=== PATIENT | female | born 1970 | race Caucasian/White ===

== ENCOUNTER 2021-11-22 14:47 | Emergency (ER) | payer BC ==
--- OUTSIDE RECORDS SUMMARY | 2021-11-22 14:49 | XMS REPORT | Continuity of Care Document ---
:1970 Author Organization [facility] t Address [address] [place] [address] Care Team Providers Name Role Phone SANFORD Mandeep Primary Care Physician Unavailable [id number] Attending Clinician Unavailable TESTING, COVID Attending Clinician Unavailable Jennifer CHAVEZ. Attending Clinician Unavailable Kathy GROSSMAN, K.H. 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 00:00: [address] Allergies, Adverse Reactions, Alerts Allergy Allergy Status Severity Reaction(s) Onset Inactive Treating Comm ents Source Name Type Date Date Clinician NO KNOWN Drug Active Univers ALLERGIE Class [facility] Social History Social Habit Start Date Stop Date Quantity Comments Source Exposure to Not sure [facility] SARS-CoV-2 (event) Medica l Branch Tobacco use and 2021-07-17 2021-07-17 Never used [facility] exposure 00:00:00 00:00:00 Medical [place] Sex [birth year] [facility] 00:00:00 00:00:00 Medical Branch Smoking Status Start Date Stop Date Source Former smoker 2021-07-17 00:00:00 2021-07-17 00:00:00 [facility] Medical Branch Medications Ordered Filled Start Stop Current Ordering Indication Dosage Frequency Signature Comments Components Source Medication Medication Date Date Medication? Clinician (SIG) Name Name metoprolol Yes 50mg Take 50 mg U nivers succinate 9-01 by mouth it[place] of XL 50 mg 24 14:08: [place] [address] [place] [address] Branch rosuvastati Yes 5mg Take 5 mg U nivers n 5 mg - by mouth ity of tablet 14:08: daily. [address] OMEPRAZOLE Yes 40mg Take 40 mg U nivers ORAL 07-17 by mouth. ity of 14:08: [address] aspirin 81 Yes 81mg Take 81 mg U nivers mg chewable 07-17 by mouth ity of tablet 14:08: daily. [address] cholecalcif Yes Take by Un lydia judi, 07-17 mouth ity of vitamin D3, 14:08: daily. [place] (VITAMIN 04 Medical D3) 4,000 Branch unit Cap docosahexan Yes Take by Un lydia oic 07-17 mouth. ity of acid/epa 14:08: [place] (FISH OIL Medical ORAL) [place] metoprolol Yes 50mg Take 50 mg U nivers succinate 9-01 by mouth ity of XL 50 mg 24 14:08: [place]. [place] [address] [place] [address] rosuvastati Yes 5mg Take 5 mg U nivers n 5 mg -01 by mouth ity of tablet 14:08: daily. [address] OMEPRAZOLE Yes 40mg Take 40 mg U nivers ORAL 07-17 by mouth. ity of 14:08: [address] aspirin 81 Yes 81mg Take 81 mg U nivers mg chewable 07-17 by mouth ity of tablet 14:08: daily. [address] cholecalcif Yes Take by Un lydai judi, - mouth ity of vitamin D3, 14:08: daily. [place] (VITAMIN 04 Medical D3) 4,000 Branch unit Cap docosahexan Yes Take by Un lydia oic 9- mouth. ity of acid/epa 14:08: [place] (FISH OIL 04 Medical ORAL) Branch losartan 2020-0 Yes 100mg Take 1 Univer s 100 mg 3-30 tablet by ity of tablet 00:00: mouth [place] 00 daily. Medical Branch losartan 2020-0 Yes 100mg Take 1 Univer s 100 mg 3-30 tablet by ity of tablet 00:00: mouth [place] 00 daily. Medical Branch losartan 2020-0 Yes 100mg Take 1 Univer s 100 mg 3-30 tablet by ity of tablet 00:00: mouth [place] 00 daily. Medical Branch losartan 2019-0 Yes 100mg Take 1 Univer s 100 mg 3-30 tablet by ity of tablet 00:00: mouth [place] 00 daily. Medical Branch losartan 2019-0 Yes 100mg Take 1 Univer s 100 mg 3-30 tablet by ity of tablet 00:00: mouth [place] 00 daily. [facility] Branch cholecalcif 2018-11 Yes Take by Un lydia judi, 1-21 mouth ity of vitamin D3, 15:58: daily. [place] (VITAMIN 39 Medical D3) 4,000 Branch unit Cap cholecalcif 2018-11 Yes Take by Un lydia judi, 1-21 mouth ity of vitamin D3, 15:58: [place]. [place] (VITAMIN 39 Medical D3) 4,000 Branch unit Cap cholecalcif 2018-11 Yes Take by Un lydia judi, 1-21 mouth ity of vitamin D3, 15:58: daily. [place] (VITAMIN 39 Medical D3) 4,000 Branch unit Cap metoprolol 2018-11 Yes 50mg Take 50 mg U nivers succinate -21 by mouth ity of XL 50 mg 24 15:53: daily. [place] [facility] tablet [address] [place] [address] rosuvastati 2018-11 Yes 5mg Take 5 mg U nivers n 5 mg -21 by mouth ity of tablet 15:53: daily. [address] OMEPRAZOLE 2018-11 Yes 40mg Take 40 mg U nivers ORAL -21 by mouth. ity of 15:53: [address] aspirin 81 2018-11 Yes 81mg Take 81 mg U nivers mg chewable -21 by mouth ity of tablet 15:53: daily. [address] docosahexan 2018-11 Yes Take by Un lydia oic 1-21 mouth. ity of acid/epa 15:53: [place] (FISH OIL 50 Medical ORAL) Branch metoprolol 2018-11 Yes 50mg Take 50 mg U nivers succinate 1-21 by mouth ity of XL 50 mg 24 15:53: [place]. [place] 50 [facility] rosuvastati 2018-11 Yes 5mg Take 5 mg U nivers n 5 mg 1-21 by mouth ity of tablet 15:53: daily. [address] OMEPRAZOLE 2018-11 Yes 40mg Take 40 mg U nivers ORAL 1-21 by mouth. ity of 15:53: [address] aspirin 81 2018-11 Yes 81mg Take 81 mg U nivers mg chewable 1-21 by mouth ity of tablet 15:53: daily. [address] docosahexan 2018-11 Yes Take by Un lydia oic 1-21 mouth. ity of acid/epa 15:53: [place] (FISH OIL 50 Medical ORAL) [place] metoprolol 2018-11 Yes 50mg Take 50 mg U nivers succinate 1-21 by mouth ity of XL 50 mg 24 15:53: [place]. [place] 50 [facility] rosuvastati 2018-11 Yes 5mg Take 5 mg U nivers n 5 mg 1-21 by mouth ity of tablet 15:53: daily. [address] OMEPRAZOLE 2018-11 Yes 40mg Take 40 mg U nivers ORAL 1-21 by mouth. ity of 15:53: [address] aspirin 81 2018-11 Yes 81mg Take 81 mg U nivers mg chewable 1-21 by mouth ity of tablet 15:53: daily. [address] docosahexan 2018-11 Yes Take by Un lydia oic 1-21 mouth. ity of acid/epa 15:53: [place] (FISH OIL 50 Medical ORAL) Branch losartan 2018-11 2020- No 100mg Take 1 Unive rs 100 mg 0-18 03-30 tablet by ity of tablet 00:00: 00:00 mouth [place] 00 :00 daily. Medical Branch GABAPENTIN 2019-0 Yes [id number] TAKE ONE Univers 100 mg 9-27 (1) ity of capsule 00:00: [place]) [place] [facility]- Yes [id number] TAKE ONE Univers 100 mg 9-27 (1) ity of capsule 00:00: [place]) [place] 00 BY [place]OUTH Medical AT [place] BEDTIME. GABAPENTIN 2019-0 Yes [id number] TAKE ONE Univers 100 mg 9-27 (1) ity of capsule 00:00: [place]) [place] 00 BY MOUTH Medical AT [place] BEDTIME. GABAPENTIN 2019-0 Yes [id number] TAKE ONE Univers 100 mg 9-27 (1) ity of capsule 00:00: [place](S) [place] 00 BY MOUTH Medical AT [place] BEDTIME. GABAPENTIN 2019- Yes [id number] TAKE ONE Univers 100 mg 9-27 (1) ity of capsule 00:00: CAP[place]LE(S) [place] 00 BY MOUTH Medical AT [place] BEDTIME. metoprolol Yes 50mg Take 50 mg U nivers succinate 6-07 by mouth ity of XL 50 mg 24 16:48: daily. [place] [address] [place] [address] rosuvastati Yes 5mg Take 5 mg U nivers n 5 mg 6-07 by mouth ity of tablet 16:48: daily. [address] OMEPRAZOLE 2019-0 Yes 40mg Take 40 mg U nivers ORAL 6-07 by mouth. ity of 16:48: [address] aspirin 81 2019-0 Yes 81mg Take 81 mg U nivers mg chewable 6-07 by mouth ity of tablet 16:48: daily. [address] Cholecalcif 2019 Yes Take by Un lydia judi, 6-07 mouth. ity of Vitamin D3, 16:48: [place] (VITAMIN Medical D3) 2,000 [place] unit capsule docosahexan 2019 Yes Take by Un lydia oic 6-07 mouth. ity of acid/epa 16:48: [place] (FISH OIL 30 Medical ORAL) Branch metoprolol 2018-0 Yes 50mg Take 50 mg U nivers succinate 6-07 by mouth ity of XL 50 mg 24 16:48: daily. [place] [address] [place] [address] rosuvastati 20190 Yes 5mg Take 5 mg U nivers n 5 mg 6-07 by mouth ity of tablet 16:48: daily. [place] 30 Medical Branch OMEPRAZOLE Yes 40mg Take 40 mg U nivers ORAL 6-07 by mouth. ity of 16:48: [address] Branch aspirin 81 Yes 81mg Take 81 mg U nivers mg chewable 6-07 by mouth ity of tablet 16:48: daily. [address] Branch Cholecalcif Yes Take by Un lydia judi, 6-07 mouth. ity of Vitamin D3, 16:48: [place] (VITAMIN 30 Medical D3) 2,000 Branch unit capsule docosahexan Yes Take by Un lydia oic 6-07 mouth. ity of acid/epa 16:48: [place] (FISH OIL 30 Medical ORAL) Branch gabapentin Yes [id number] 100mg Take 1 Univers 100 mg 6-07 capsule by ity of capsule 00:00: mouth at [place] 00 bedtime. Medical Branch gabapentin Yes [id number] 100mg Take 1 Univers 100 mg 6-07 capsule by ity of capsule 00:00: mouth at [place] 00 bedtime. Medical Branch losartan Yes 100mg Take 1 Univer s 100 mg 5-21 tablet by ity of tablet 00:00: mouth [place] 00 daily. Medical Branch losartan Yes 100mg Take 1 Univer s 100 mg 5-21 tablet by ity of tablet 00:00: mouth [place] 00 daily. Medical Branch Vital Signs Vital Name Observation Time Observation Value Comments Source Systolic blood 2021-07-17 14:08:00 146 mm[Hg] [facility] pressure [facility] Diastolic blood 2021-07-17 14:08:00 79 mm[Hg] [facility] BMI 2021-07-17 14:06:00 43.16 kg/m2 [facility] Oxygen saturation 2021-07-17 14:06:00 97 /min [facility] in Arterial blood [facility] Br anch by Pulse oximetry Heart rate 2021-07-17 14:06:00 69 /min [facility] Body height 2021-07-17 14:06:00 157.5 cm [facility] Body weight 2021-07-17 14:06:00 107.049 kg [facility] Procedures Procedure Date / Time Performing Clinician Source Performed ASSIGNMENT OF BENEFITS 2021-07-17 13:43:06 Doctor Unassigned, No [facility] DME/SUPPLY JUSTIFICATION 2019-06-09 05:01:00 Doctor Unassigned, No [facility] Encounters Start End Encounter Admission Attending Care Care Encounter Source Date/Time Date/Time Type Type Clinicians Facility Department ID 2021-11-13 2021-11-13 Outpatient [id number] YSABEL CABRALES [id number] [place] 15:40:00 15:40:00 Seybol d 2021-11-13 2021-11-13 Outpatient TESTING, PL YSABEL CABRALES [id number] [place] 15:20:00 15:20:00 Seybol d 2021-09-17 2021-09-17 Outpatient Padmini CHAVEZ [facility] [id number] Univers 09:00:00 09:00:00 SENDIL [facility] [place] [facility] 2021-09-17 2021-09-17 Outpatient Padmini CHAVEZ [facility] [id number] Univers 09:00:00 09:00:00 SENDIL [id number] [facility] [place] [facility] 2021-07-17 2021-07-17 Office Kathy GAABBY [id number] Univers 08:42:59 09:48:47 Visit Sendej Bowman [id number] ity [facility] [id number] [place] Profess[place] [phone] [address] 2021-07-17 2021-07-17 Outpatient Padmini CHAVEZ [facility] [id number] Univers 09:00:00 09:00:00 SENDIL [id number] ity [facility] 2021-07-17 2021-07-17 Outpatient Padmini CHAVEZ [facility] [id number] Univers 09:00:00 09:00:00 SENDIL [facility] [place] [facility] 2021-07-17 2021-07-17 Orders Doctor HUYNH [id number] Univers 00:00:00 00:00:00 Only Unassigned, PIERRE [id number] ity of [facility] [id number] [place] [phone] [address] 2021-06-17 2021-06-17 Outpatient R KATHY [facility] [id number] Univers 09:00:00 09:00:00 SENDIL [id number] ity [facility] 2021-06-17 2021-06-17 Outpatient R KATHY [facility] [id number] Univers 09:00:00 09:00:00 [facility] [place] 2021-01-29 2021-01-29 Patient Herb [facility] [id number] Univers 00:00:00 00:00:00 Outreach Phill PRIMARY [id number] i ty of [facility] [id number] [place] [phone] [facility] [address] [place] 2020-02-13 2020-02-13 [facility] [id number] Univers 00:00:00 00:00:00 Sendil Tonia Bowman [id number] [id number] [place] Profess[place] [phone] Ms dicmt nal 059 Branch [facility] 2019-06-09 2019-06-09 Orders Doctor LINO [id number] Univers 00:00:00 00:00:00 Only Unassigned, PIERRE [id number] ity of [place] [facility] [id number] [place] [phone] [address] 2019-06-03 2019-06-03 [facility] [id number] Univers 00:00:00 00:00:00 [place] Tonia Bowman [id number] [id number] [place] [phone] [facility] nal 9 Branch [facility] Results This patient has no known results.
--- NOTE | 2021-11-22 16:15 | RAD REPORT ---
EXAM DESCRIPTION: RAD - Chest Pa And Lat (2 Views) - 11/22/2021 4:03 pm CLINICAL HISTORY: COUGH COMPARISON: No comparisons FINDINGS: Lines: None. Lungs: No evidence of edema or pneumonia. Pleural: No significant pleural effusions or pneumothorax. Cardiac: The heart size is within normal limits. Bones: No acute fractures. Other: IMPRESSION: No acute cardiopulmonary disease.
--- NOTE | 2021-11-22 16:25 | EDPHYS ---
Physician Documentation [facility] Name: Shannon Mandujano Age: 51 yrs Sex: Female : 1970 Arrival Date: 11/22/2021 Time: 15:00 Bed Waiting Private MD: ED Physician Souleymane Caro HPI: 11/22 15:40 This 51 yrs old Female presents to ER via Ambulatory with complaints of Cough, Nasal cp Drainage, Headache, COVID +. 15:40 The patient or guardian reports cough, that is intermittent. Onset: The cp symptoms/episode began/occurred 10 day(s) ago. 15:40 Severity of symptoms: in the emergency department the symptoms are unchanged, despite cp home interventions. Associated signs and symptoms: Pertinent positives: rhinorrhea, sore throat, Pertinent negatives: chest pain, diarrhea, fever, vomiting. 15:40 Patient reports testing positive for COVID-19 10 days ago. cp Historical: - Allergies: 15:26 No Known Allergies; tw2 - Home Meds: 15:26 amlodipine 2.5 mg tab 1 tab once daily [Active]; metoprolol succinate 50 mg Oral Tb24 1 tw2 tab once daily [Active]; omeprazole 40 mg Oral cpDR 1 cap once daily [Active]; losartan-hydrochlorothiazide 100-25 mg oral tab 1 tab once daily [Active]; - PMHx: 15:26 acid reflux; Hypertension; tw2 - Immunization history:: Client reports having NOT received the Covid vaccine. - Social history:: Smoking status: Patient denies any tobacco usage or history of. ROS: 15:45 Constitutional: Positive for body aches, Negative for fever, poor PO intake. cp 15:45 Eyes: Negative for injury, pain, redness, and discharge. cp 15:45 ENT: Positive for sore throat, Negative for drainage from ear(s), ear pain, difficulty swallowing, difficulty handling secretions. 15:45 Neck: Negative for pain with movement, pain at rest, stiffness. 15:45 Cardiovascular: Negative for chest pain, palpitations. 15:45 Respiratory: Positive for cough, "sounds productive", shortness of breath, on exertion. Negative for wheezing. 15:45 Abdomen/GI: Negative for abdominal pain, nausea, vomiting, and diarrhea. 15:45 : Negative for urinary symptoms. 15:45 Neuro: Negative for altered mental status, headache, weakness. 15:45 All other systems are negative. Exam: 15:50 Constitutional: The patient appears in no acute distress, alert, awake, cp non-diaphoretic, non-toxic, well developed, well nourished, obese. 15:50 Head/Face: Normocephalic, atraumatic. cp 15:50 Eyes: Periorbital structures: appear normal, Conjunctiva: normal, no exudate, no injection, Sclera: no appreciated abnormality, Lids and lashes: appear normal, bilaterally. 15:50 ENT: External ear(s): are unremarkable, Ear canal(s): are normal, clear, TM's: dullness, bilaterally, Nose: is normal, Mouth: Lips: moist, Oral mucosa: pink and intact, moist, Posterior pharynx: Airway: no evidence of obstruction, patent, Tonsils: no enlargement, no exudate, erythema, that is mild, exudate, is not appreciated. 15:50 Neck: ROM/movement: is normal, is supple, no meningismus, no nuchal rigidity. 15:50 Chest/axilla: Inspection: normal. 15:50 Cardiovascular: Rate: normal, Rhythm: regular, Edema: is not appreciated, JVD: is not appreciated. 15:50 Respiratory: the patient does not display signs of respiratory distress, Respirations: normal, no use of accessory muscles, no retractions, labored breathing, is not present, Breath sounds: bronchial sounds, that are mild, are heard diffusely, decreased breath sounds, are not appreciated, stridor, is not appreciated, + upper airway congestion. wheezing: is not appreciated. 15:50 Abdomen/GI: Exam negative for discomfort, distension, guarding, Inspection: abdomen appears normal. 15:50 Back: CVA tenderness, is absent. 15:50 Neuro: Orientation: to person, place \\T\\ time. Mentation: is normal, Motor: moves all fours, strength is normal, Sensation: is normal. Vital Signs: 15:31 BP 163 / 96; Pulse 66; Resp 19; Temp 97.6(TE); Pulse Ox 99% on R/A; tw2 MDM: 16:24 Patient medically screened. cp 16:24 Differential Diagnosis: Bronchitis Otitis Media Viral Syndrome Pneumonia Other strep cp throat. 16:24 Data reviewed: vital signs, nurses notes, radiologic studies, plain films. Test cp interpretation: by ED physician or midlevel provider: plain radiologic studies. Counseling: I had a detailed discussion with the patient and/or guardian regarding: the historical points, exam findings, and any diagnostic results supporting the discharge/admit diagnosis, radiology results, to return to the emergency department if symptoms worsen or persist or if there are any questions or concerns that arise at home. ED course: VSS. Patient appears non-toxic and no signs of respiratory distress. Will discharge to home for continued monitoring. 11/22 15:28 Order name: XRAY Chest Pa And Lat (2 Views); Complete Time: 16:23 cp 11/22 16:23 Interpretation: Report reviewed. cp Administered Medications: No medications were administered Disposition Summary: 11/22/21 16:24 Discharge Ordered Location: Home cp Problem: new cp Symptoms: are unchanged cp Condition: Stable cp Diagnosis - SARS-associated coronavirus as the cause of diseases classified elsewhere cp Followup: cp - With: Private Physician - When: 2 - 3 days - Reason: Worsening of condition Discharge Instructions: - Discharge Summary Sheet cp - Aspirin and Your Heart cp - COVID-19 cp - Things to Know about the COVID-19 Pandemic - [facility] cp - 10 Things You Can Do to Manage Your COVID-19 Symptoms at Home - [facility] cp - COVID-19: Quarantine vs. Isolation - [facility] cp - Prevent the Spread of COVID-19 if You Are Sick - [facility] cp Forms: - Medication Reconciliation Form cp - Thank You Letter cp - Antibiotic Education cp - Prescription Opioid Use cp Prescriptions: - Tessalon Perles 100 mg Oral Capsule - take 2 capsule by ORAL route every 8 hours As needed; 30 capsule; Refills: 0, cp Product Selection Permitted - Zithromax Z-Augustine 250 mg Oral Tablet - take 1 tablet by ORAL route as directed for 5 days Day 1 - take two (2) tablets cp one time. Day 2, 3, 4 , 5 take one (1) tablet once daily.; 6 tablet; Refills: 0, Product Selection Permitted - Medrol (Augustine) 4 mg Oral Tablets, Dose Pack - take 1 tablet by ORAL route as directed - follow package instructions; 1 cp packet; Refills: 0, Product Selection Permitted - albuterol sulfate 90 mcg/actuation Inhalation HFA aerosol inhaler - inhale 1 puff by INHALATION route every 4 hours; 1 Inhaler; Refills: 0, Product cp Selection Permitted Addendum: 11/24/2021 16:19 Co-signature as Attending Physician, Souleymane Caro MD I agree with the assessment and s p3 plan of care. Signatures: Dispatcher [employer] EDOH Refugio Hilton PA PA cp Wise, Tara RN RN tw2 Souleymane Caro MD MD sp3
--- NOTE | 2021-11-22 16:25 | ER ---
Nurse's Notes [facility] Name: Shannon Mandujano Age: 51 yrs Sex: Female : 1970 Arrival Date: 11/22/2021 Time: 15:00 Bed Waiting Private MD: Diagnosis: SARS-associated coronavirus as the cause of diseases classified elsewhere Presentation: 11/22 15:31 Note provider FELIZ Rivero in triage room performing assessment. tw2 15:31 Chief complaint: Patient states: we have covid and we are just not getting better. we tw2 have the nasal drainage with a cough and nausea. we have been taking OTC medicines and just not getting better. Coronavirus screen: congestion, cough unrelated to allergies, headache, Client presents with at least one sign or symptom that may indicate coronavirus-19. Standard/surgical mask placed on the client. Provider contacted for isolation considerations. Client reports previous positive COVID test result. Ebola Screen: Patient denies travel to an Ebola-affected area in the 21 days before illness onset. Initial Sepsis Screen: Does the patient meet any 2 criteria? No. Patient's initial sepsis screen is negative. Does the patient have a suspected source of infection? No. Patient's initial sepsis screen is negative. Risk Assessment: Do you want to hurt yourself or someone else? Patient reports no desire to harm self or others. Onset of symptoms was November 22, 2021. 15:31 Method Of Arrival: Ambulatory tw2 15:31 Acuity: LEATHA 4 tw2 Triage Assessment: 15:33 General: Appears in no apparent distress. obese, well groomed, Behavior is calm, tw2 cooperative, appropriate for age. Pain: Complains of pain in headache. Historical: - Allergies: 15:26 No Known Allergies; tw2 - Home Meds: 15:26 amlodipine 2.5 mg tab 1 tab once daily [Active]; metoprolol succinate 50 mg Oral Tb24 1 tw2 tab once daily [Active]; omeprazole 40 mg Oral cpDR 1 cap once daily [Active]; losartan-hydrochlorothiazide 100-25 mg oral tab 1 tab once daily [Active]; - PMHx: 15:26 acid reflux; Hypertension; tw2 - Immunization history:: Client reports having NOT received the Covid vaccine. - Social history:: Smoking status: Patient denies any tobacco usage or history of. Screenin:08 Abuse screen: Denies threats or abuse. Denies injuries from another. Nutritional ss screening: No deficits noted. Tuberculosis screening: No symptoms or risk factors identified. Never had TB. Fall Risk None identified. Assessment: 17:08 General: Appears in no apparent distress. comfortable, Behavior is calm, cooperative. ss Neuro: Level of Consciousness is awake, alert, obeys commands, Oriented to person, place, time, situation. Respiratory: Airway is patent Respiratory effort is even, unlabored, Respiratory pattern is regular, symmetrical. Derm: Skin is intact, is healthy with good turgor, Skin is dry, Skin is pink, warm \T\ dry. normal. Musculoskeletal: Range of motion: intact in all extremities. Vital Signs: 15:31 BP 163 / 96; Pulse 66; Resp 19; Temp 97.6(TE); Pulse Ox 99% on R/A; tw2 ED Course: 15:00 Patient arrived in ED. am2 15:17 Refugio Hilton PA is PHCP. cp 15:17 Souleymane Caro MD is Attending Physician. cp 15:28 Arm band placed on. tw2 15:33 Triage completed. tw2 16:02 XRAY Chest Pa And Lat (2 Views) In Process Unspecified. EDMS 17:08 Patient has correct armband on for positive identification. Pt discharged from ER [facility].ss 17:08 No provider procedures requiring assistance completed. Patient did not have IV access ss during this emergency room visit. Administered Medications: No medications were administered Outcome: 16:24 Discharge ordered by MD. cp 17:08 Discharged to home ambulatory, with family. ss 17:08 Condition: good 17:08 Discharge instructions given to patient, family, Instructed on discharge instructions, follow up and referral plans. medication usage, Demonstrated understanding of instructions, follow-up care, medications, Prescriptions given X 4. 17:09 Patient left the ED. ss Signatures: Dispatcher [employer] EDPR Maria L Ordaz RN RN Refugio Hilton PA PA cp Wise, Tara, RN RN tw2 Lorene Fox am2
[2021-11-22 17:14] VITALS: BP 163/96; TEMP 97.6; O2SAT 99
== END 2021-11-22 17:09 | disposition home or self-care (01) ==
LOC: ER 14:47
DX: U07.1 COVID-19 (principal); I10 Essential (primary) hypertension; K21.9 Gastro-esophageal reflux disease without esophagitis
CPT/HCPCS: 71046; 99283

== ENCOUNTER 2022-09-30 07:25 | Observation (INO) | payer BC ==
--- NOTE | 2022-09-25 09:51 | RAD REPORT ---
EXAM DESCRIPTION: Juani Barraza (2 Views)09/25/2022 9:42 am CLINICAL HISTORY: Preop for knee surgery. Hypertension COMPARISON: November 2021 FINDINGS: The lungs appear clear of acute infiltrate. The heart is normal size IMPRESSION: No acute abnormalities displayed
[2022-09-25 10:07] LABS: Absolute Lymphocytes (CBC) 1.7 K/uL (0.7-4.9); Hematocrit 40.6 % (36.0-45.0); Lymphocytes % 27.7 % (15.3-44.8); MCV 92.3 fL (80-100); MPV 8.3 fL (7.6-11.3)
[2022-09-25 10:12] LABS: Specific Gravity 1.017 (1.005-1.030); Urine Bilirubin NEGATIVE (Negative); Urine Blood 2+ (Negative); Urine Clarity Clear (Clear); Urine Color Light-Yellow (Yellow); Urine Glucose NEGATIVE (Negative); Urine Protein NEGATIVE (Negative); Urine RBC <5 /HPF (None Seen); Urine Urobilinogen Normal (Normal)
[2022-09-25 10:19] LABS: Protime INR 0.96
[2022-09-25 10:28] LABS: Albumin 3.8 g/dL (3.4-5.0); Bilirubin Total 0.8 mg/dL (0.2-1.0); Potassium 3.9 mmol/L (3.5-5.1); Protein, Total 7.3 g/dL (6.4-8.2)
[~2022-09-30 07:25] MED LIST: CEFAZOLIN 2 GM in NA CHLORIDE 0.9% 100 ML IVPB SCH; CELECOXIB 100 MG CAPSULE PO SCH; GABAPENTIN 100 MG CAP PO SCH; GABAPENTIN 300 MG CAP PO SCH; Oxycodone HCl/Acetaminophen 1 TAB TAB PO SCH; TRANEXAMIC ACID 1,000 MG in NA CHLORIDE 0.9% 50 ML IV ONE
[2022-09-30 08:09] LABS: Urine Specific Gravity/Preg >1.030 (1.005-1.030)
[2022-09-30] MEDS ORDERED: CEFAZOLIN SODIUM 2 GM/VIAL ONE (08:16)
[2022-09-30] MEDS ORDERED: Ringers Lactate 1,000 ML IV ONE ×2 (08:16→09:21)
[2022-09-30 08:39] LABS: SARS-CoV-2 Antigen Rapid Res Negative (Negative)
[2022-09-30] MEDS ORDERED: CELECOXIB 100 MG CAPSULE ONE (08:46)
[2022-09-30] MEDS ORDERED: GABAPENTIN 100 MG CAP ONE (08:46)
[2022-09-30] MEDS ORDERED: Oxycodone HCl/Acetaminophen 1 TAB TAB ONE (08:47)
[2022-09-30] MEDS ORDERED: ACETAMINOPHEN 500 MG TAB ONE (08:47)
[2022-09-30] MEDS ORDERED: LIDOCAINE 1% MPF 5 ML VIAL ONE (09:01)
[2022-09-30] MEDS ORDERED: dexAMETHasone 10 MG/ML VIAL ONE ×2 (09:02→09:41)
[2022-09-30] MEDS ORDERED: EPINEPHRINE/PF 1 MG/ML AMP ONE (09:02)
[2022-09-30] MEDS ORDERED: FENTANYL CITR 100 MCG/2 ML ONE ×2 (09:02→10:19)
[2022-09-30] MEDS ORDERED: MIDAZOLAM HCL 2 MG/2 ML INJ ONE (09:02)
[2022-09-30] MEDS ORDERED: BUPIVACAINE 0.25% PF 30 ML VIAL ONE (09:02)
[2022-09-30] MEDS ORDERED: HYDROMORPHONE HCL 1 MG/ML INJ ONE (09:37)
[2022-09-30] MEDS: TRANEXAMIC ACID 1,000 MG/10 ML VIAL IV ONE ×3 (09:38→11:00)
[2022-09-30] MEDS ORDERED: propofoL 200 MG/20 ML VIAL IV ONE ×2 (09:40→10:18)
[2022-09-30] MEDS ORDERED: KETOROLAC 30 MG/ML INJ ONE (09:41)
[2022-09-30] MEDS ORDERED: LIDOCAINE 2% MPF 5 ML VIAL ONE (09:41)
[2022-09-30] MEDS ORDERED: KETAMINE HCL 500 MG/5 ML VIAL ONE (09:41)
[2022-09-30] MEDS ORDERED: ONDANSETRON 4 MG/2 ML VIAL ONE (09:44)
[2022-09-30] MEDS ORDERED: NS 0.9% VIAL 10 ML ONE ×2 (09:52→11:11)
[2022-09-30] MEDS ORDERED: GLYCOPYRROLATE 0.2 MG/ML SYR ONE (10:34)
[2022-09-30] MEDS ORDERED: TRANEXAMIC ACID 1,000 MG/10 ML VIAL IV ONE (10:57)
[2022-09-30] MEDS ORDERED: ONDANSETRON 4 MG/2 ML VIAL IV PRN (12:13)
[2022-09-30] MEDS ORDERED: DOCUSATE NA 100 MG CAP PO PRN (12:13)
--- NOTE | 2022-09-30 12:13 | P.BOP ---
Preoperative diagnosis: right knee arthritis Postoperative diagnosis: same Primary procedure: right total knee arthoplasty Estimated blood loss: 100 ccs Anesthesia: General Complications: None Transferred to: Recovery Room Condition: Good
[2022-09-30] MEDS ORDERED: MEPERIDINE HCL 25 MG/ML SYR ONE (12:46)
[2022-09-30] MEDS: HYDROMORPHONE HCL 1 MG/ML INJ ONE ×2 (13:49→13:59)
[2022-09-30] MEDS ORDERED: LABETALOL 20 MG/4ML SYRINGE IV PRN (14:09)
--- OUTSIDE RECORDS SUMMARY | 2022-09-30 14:10 | XMS REPORT | Continuity of Care Document ---
:1970 Author Organization [facility] t Address [address] [place] [address] [address]. Argu[address] [place] [address] Care Team Providers Name Role Phone Laurita GROSSMAN, Judy Vaughan Primary Care Physician CHANDLER ALVAREZ Attending Clinician Unavailable Kathy GROSSMAN, Sendmilvia K.H. Attending Clinician JACQUIE RAMSEY Attending Clinician Unavailable Nimtz MUSCULOSKELETAL PHYSIOTHERAPISTJacquie Attending Clinician Doctor Unassigned, [place] Attending Clinician Unavailable LAB90 Attending Clinician Unavailable Laure Mars MD Attending Clinician JUDY SHAY Attending Clinician Unavailable LAURE MARS Attending Clinician Unavailable KATHY SENDMILVIA K.H. Attending Clinician Unavailable Only, Adc Test Attending Clinician Unavailable Rosas Solares MD Attending Clinician ROSAS SOLARES Attending Clinician Unavailable Judy Shay MD Attending Clinician [phone] [id number] Attending Clinician Unavailable TESTING, PL COVID Attending Clinician Unavailable Phill Estevez DO Attending Clinician LAURE MARS Admitting Clinician Unavailable CELIA CHAVEZ K.H. 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 00:00: - 00 Externa l Splenic Splenic Disease Active 2021-11 [place] artery artery 0-12 [place] aneurysm aneurysm 00:00: - 00 Externa l Class 3 Class 3 Disease Active 2021-11 [place] severe severe 0-12 [place] obesity obesity 00:00: - due to due to 00 Externa excess excess l calories calories with with serious serious comorbidit comorbidit y and body y and body mass index mass index (BMI) of (BMI) of 40.0 to 40.0 to 44.9 in 44.9 in adult adult Current Current Disease Active 2021-11 [place] mild mild 0-12 [place]bold 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:00: - major major 00 Externa depressive depressive l disorder disorder without without prior prior episode episode Primary Primary Disease Active 2021-11 [place] osteoarthr osteoarthr 0-12 Se ybold itis of itis of 00:00: - both knees both knees 00 Ex terna l 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-09 ity of aneurysm aneurysm 00:00: [place] 00 [facility] Renal Renal Disease Active Univers artery artery 7-11 ity of aneurysm aneurysm 00:00: [place] 00 [facility] Gastroesop Gastroesop Disease Active Faye konstantinshalini hageal hageal 6-18 [place] reflux reflux 00:00: disease disease 00 Hyperlipid Hyperlipid Disease Active Faye dodge emia emia 6-18 Seybold 00:00: - 00 Externa l Gastroesop Gastroesop Disease Active Faye konstantinshalini hageal hageal 6-18 [place] reflux reflux 00:00: - disease disease 00 Externa without without l esophagiti esophagiti s s History of History of Disease Active Faye dodge hypothyroi hypothyroi 6-18 Se ybold dism - Not dism - Not 00:00: - Controlled Controlled 00 Ex terna l Chest pain Chest pain Disease Active Faye elsey 6-18 [place]bold 00:00: - 00 Externa l Encounter Encounter Disease Active Milo solis for for 6-18 [place] mammogram mammogram 00:00: - to to 00 Externa establish establish l baseline baseline mammogram mammogram - - Unchanged Unchanged Hypertensi Hypertensi Disease Active K elsey on on 05-03 Seybold 00:00: - 00 Externa l 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 00:00: [place] 00 [facility] Allergies, Adverse Reactions, Alerts Allergy Allergy Status Severity Reaction(s) Onset Inactive Treating Comm ents Source Name Type Date Date Clinician NO KNOWN Drug Active Univers ALLERGIE Class [facility] Social History Social Habit Start Date Stop Date Quantity Comments Source History of Current smoker [facility] tobacco use [facility] Exposure to 2022-08-23 2022-09-02 Not sure [facility] SARS-CoV-2 00:00:00 06:38:00 [facility] (event) [facility] Tobacco use and 2022-05-26 2022-05-26 Smokeless tobacco Un iversity of exposure 00:00:00 00:00:00 [facility]user [facility] Sex Ass[birth year] At [birth year] Y[place]abel Woods ybold - 00:00:00 00:00:00 External Smoking Status Start Date Stop Date Source Ex-smoker 2021-05-03 00:00:00 2021-05-03 00:00:00 Ysabel galdamez - External Medications Ordered Filled Start Stop Current Ordering Indication Dosage Frequency Signature Comments Components Source Medication Medication Date Date Medication? Clinician (SIG) Name Name ibuprofen 2021-11 Yes 800mg Take 800 Uni vers 800 mg 0-18 mg by ity of tablet 08:09: mouth [place] 35 every 6 Medical (six) Branch hours as needed. ibuprofen 2021-11 Yes 800mg Take 800 Uni vers 800 mg 0-18 mg by ity of tablet 08:09: mouth [place] 35 every 6 Medical (six) Branch hours as needed. ibuprofen 2021-11 Yes 800mg Take 800 Uni vers 800 mg 0-18 mg by ity of tablet 08:09: mouth [place] 35 every 6 Medical (six) Branch hours as needed. [place]-3 2021-11 Yes Take by [place] Fatty Acids 0-12 mouth [place] (Fish Oil) 07:57: - 1200 MG 10 Externa oral l Capsule Aspirin 81 2021-11 Yes 81mg Take 81 mg K elsey MG oral 0-12 by mouth [place] Chewable 07:57: daily - Tablet 10 Externa l Cholecalcif 2021-11 Yes Take by Milo sey judi 100 0-12 mouth [place]bold MCG (4000 07:57: daily - [place]) oral 10 Externa Capsule l Ibuprofen 2021-11 Yes [id number] 800mg Q.[id number] Take 1 [place]abel 800 MG oral 0-12 [id number] tablet Seybold Tablet 00:00: 3D (800 mg - 00 total) by Externa mouth l every 8 hours as needed for pain Sertraline Yes [id number] TAKE ONE [place] HCl 50 MG 07-25 (1) Seybold oral Tablet 00:00: TABLET(S) - 00 BY MOUTH Externa ONCE A l DAY. Ibuprofen 2021- No [id number] 800mg Q.[id number] Take 1 [place]abel 800 MG oral 6-24 10-12 [id number] tablet Seybold Tablet 00:00: 00:00 3D (800 mg - 00 :00 total) by Externa mouth l every 8 hours as needed for pain Famotidine 2021- No [id number] 20mg Take 1 [place] (PEPCID) 20 6-24 10-12 tablet (20 S eybold MG oral 00:00: 00:00 mg total) - tablet 00 :00 by mouth Externa daily l [place]-3 Yes Take by [place] Fatty Acids 5-13 mouth [place] (Fish Oil) 08:09: 1200 MG 42 oral Capsule Aspirin 81 Yes 81mg Take 81 mg K elsey MG oral 5-13 by mouth [place]bold Chewable 08:09: daily Tablet 42 Cholecalcif Yes Take by Milo sey judi 100 5-13 mouth [place]bold MCG (4000 08:09: daily [place]) oral 42 Capsule Sertraline Yes [id number] 25mg Take 1 [place] HCl 25 MG 5-13 tablet (25 Seyb old oral Tablet 00:00: mg total) 00 by mouth daily Ibuprofen-F Yes [id number] 1{tbl} Q.[id number] Take 1 [place] amotidine 5-13 [id number] tablet by Seybold 800-26.6 MG 00:00: 3D mouth 3 oral Tablet 00 times daily as needed Ibuprofen-F 2021-0 2021- No [id number] 1{tbl} Q.[id number] Take 1 [place] amotidine 5-13 10- [id number] tablet by Seybold 800-26.6 MG 00:00: 00:00 3D mouth 3 - oral Tablet 00 :00 times Externa daily as l needed Ibuprofen-F 2021-0 2021- No [id number] 1{tbl} Q.[id number] Take 1 [place] amotidine 5-13 05- [id number] tablet by Seybold 800-26.6 MG 00:00: 00:00 3D mouth 3 oral Tablet 00 :00 times daily as needed Losartan Yes [id number] 100mg Take 1 Ke lsey Potassium 5-04 tablet Seybold 100 MG oral 00:00: (100 mg - Tablet 00 total) by Externa mouth l daily Losartan Yes [id number] 100mg Take 1 Ke lsey Potassium 5-04 tablet Seybold 100 MG oral 00:00: (100 mg Tablet 00 total) by mouth daily Metoprolol 2021-0 2021- No 50mg Take 50 mg [place] Succinate 4-15 04-15 by mouth Seybo ld 50 MG oral 08:48: 00:00 daily TABLET SR 03 :00 24 HR Rosuvastati 2021-0 2021- No 5mg Take 5 mg [place] n Calcium 5 4-15 04-15 by mouth Sey bold MG oral 08:47: 00:00 daily Tablet 29 :00 [place]-3 2021- Yes Take by [place] Fatty Acids 4-15 mouth [place] (Fish Oil) 08:15: 1200 MG 25 oral Capsule Aspirin 81 2021-0 Yes 81mg Take 81 mg K elsey MG oral 4-15 by mouth [place]bold Chewable 08:15: daily Tablet 25 Cholecalcif 2021-0 Yes Take by Milo woodsy judi 100 4-15 mouth [place] MCG (4000 08:15: daily [place]) oral 25 Capsule Omeprazole 2021-0 Yes [id number] 40mg Take 1 [place] 40 MG oral 4-15 capsule Seybol d Delayed 00:00: (40 mg - Release 00 total) by Externa Capsule mouth l daily Rosuvastati Yes [id number] 5mg Take 1 [place] n Calcium 5 4-15 tablet (5 Sey bold MG oral 00:00: mg total) - Tablet 00 by mouth Externa daily l Metoprolol Yes [id number] 50mg Take 1 K elsey Succinate 4-15 tablet (50 Seyb old 50 MG oral 00:00: mg total) - TABLET SR 00 by mouth [employer] a 24 HR daily l Fluoxetine Yes [id number] 20mg Take 1 [place] HCl 20 MG 4-15 capsule Seybold oral 00:00: (20 mg Capsule 00 total) by mouth daily Omeprazole Yes [id number] 40mg Take 1 [place] 40 MG oral 4-15 capsule Seybol d Delayed 00:00: (40 mg Release 00 total) by Capsule mouth daily Rosuvastati Yes [id number] 5mg Take 1 [place] n Calcium 5 4-15 tablet (5 Sey bold MG oral 00:00: mg total) Tablet 00 by mouth daily Losartan Yes [id number] 100mg Take 1 Ke lsey Potassium 4-15 tablet Seybold 100 MG oral 00:00: (100 mg Tablet 00 total) by mouth daily Metoprolol Yes [id number] 50mg Take 1 K elsey Succinate 4-15 tablet (50 Seyb old 50 MG oral 00:00: mg total) TABLET SR 00 by mouth 24 HR daily Omeprazole Yes [id number] 40mg Take 1 [place]abel 40 MG oral 4-15 capsule Seybol d Delayed 00:00: (40 mg Release 00 total) by Capsule mouth daily Rosuvastati Yes [id number] 5mg Take 1 [place] n Calcium 5 4-15 tablet (5 Sey bold MG oral 00:00: mg total) Tablet 00 by mouth daily Metoprolol Yes [id number] 50mg Take 1 K elsey Succinate 4-15 tablet (50 Seyb old 50 MG oral 00:00: mg total) TABLET SR 00 by mouth 24 HR daily Fluoxetine 2021- No [id number] 20mg Take 1 [place] HCl 20 MG 4-15 05-13 capsule Seybol d oral 00:00: 00:00 (20 mg Capsule 00 :00 total) by mouth daily [place]-3 Yes Take by [place] Fatty Acids 4-08 mouth Seybold (Fish Oil) 08:13: 1200 MG 53 oral Capsule Aspirin 81 0 Yes 81mg Take 81 mg K elsey MG oral 4-08 by mouth Seybold Chewable 08:13: daily Tablet 53 Cholecalcif 0 Yes Take by Milo sey judi 100 4-08 mouth [place]bold MCG (4000 08:13: daily [place]) oral 53 Capsule Metoprolol Yes 50mg Take 50 mg K elsey Succinate 4-08 by mouth Seybol d 50 MG oral 08:13: daily TABLET SR 53 24 HR Rosuvastati Yes 5mg Take 5 mg K elsey n Calcium 5 4-08 by mouth Seyb old MG oral 08:13: daily Tablet 53 Metoprolol 2020-11 Yes TAKE ONE Milo sey Succinate 0-13 (1) Seybold 50 MG oral 00:00: TABLET(S) TABLET SR 00 BY MOUTH 24 HR ONCE A DAY. Metoprolol 2020-11 No TAKE ONE Ke lsey Succinate 0-13 04-15 (1) Seybold 50 MG oral 00:00: 00:00 TABLET(S) TABLET SR 00 :00 BY MOUTH 24 HR ONCE A DAY. metoprolol Yes 50mg Take 50 mg U nivers succinate 07-17 by mouth ity of XL 50 mg 24 09:08: [place] [address] rosuvastati Yes 5mg Take 5 mg U nivers n 5 mg 07-17 by mouth ity of tablet 09:08: daily. [address] OMEPRAZOLE Yes 40mg Take 40 mg U nivers ORAL 07-17 by mouth. ity of 09:08: [address] aspirin 81 0 Yes 81mg Take 81 mg U nivers mg chewable 07-17 by mouth ity of tablet 09:08: daily. [address] Branch cholecalcif Yes Take by Uni vers judi, 07-17 mouth ity of vitamin D3, 09:08: daily. [place] (VITAMIN Medical D3) 4,000 Branch unit Cap docosahexan Yes Take by Uni vers oic 07-17 mouth. ity of acid/epa 09:08: [place] (FISH OIL 04 Medical ORAL) [facility] metoprolol 2020-0 Yes 50mg Take 50 mg U nivers succinate - by mouth ity of XL 50 mg 24 09:08: [place]. [place] hr tablet [address] [place] [address] rosuvastati 2020-0 Yes 5mg Take 5 mg U nivers n 5 mg - by mouth ity of tablet 09:08: daily. [address] OMEPRAZOLE 2020-0 Yes 40mg Take 40 mg U nivers ORAL - by mouth. ity of 09:08: [address] aspirin 81 2020-0 Yes 81mg Take 81 mg U nivers mg chewable 07-17 by mouth ity of tablet 09:08: daily. [address] cholecalcif 2020-0 Yes Take by Uni vers judi, 07-17 mouth ity of vitamin D3, 09:08: daily. [place] (VITAMIN 04 Medical D3) 4,000 Branch unit Cap docosahexan 2020-0 Yes Take by Uni vers oic 07-17 mouth. ity of acid/epa 09:08: [place] (FISH OIL 04 Medical ORAL) [facility] metoprolol 0 Yes 50mg Take 50 mg U nivers succinate - by mouth ity of XL 50 mg 24 09:08: daily. [place] hr tablet [address] [place] [address] rosuvastati 0 Yes 5mg Take 5 mg U nivers n 5 mg 07-17 by mouth ity of tablet 09:08: daily. [address] OMEPRAZOLE 2020-0 Yes 40mg Take 40 mg U nivers ORAL 07-17 by mouth. ity of 09:08: [address] aspirin 81 2020-0 Yes 81mg Take 81 mg U nivers mg chewable 07-17 by mouth ity of tablet 09:08: daily. [address] cholecalcif 2020-0 Yes Take by Uni vers judi, 07-17 mouth ity of vitamin D3, 09:08: daily. [place] (VITAMIN 04 Medical D3) 4,000 Branch unit Cap docosahexan 2020-0 Yes Take by Uni vers oic 07-17 mouth. ity of acid/epa 09:08: [place] (FISH OIL 04 Medical ORAL) Branch metoprolol 2020-0 Yes 50mg Take 50 mg U nivers succinate 9-01 by mouth ity of XL 50 mg 24 09:08: daily. [place] hr tablet [address] [place] [address] Branch rosuvastati 2020-0 Yes 5mg Take 5 mg U nivers n 5 mg -01 by mouth ity of tablet 09:08: daily. [address] OMEPRAZOLE 2020-0 Yes 40mg Take 40 mg U nivers ORAL - by mouth. ity of 09:08: [address] aspirin 81 2020-0 Yes 81mg Take 81 mg U nivers mg chewable 07-17 by mouth ity of tablet 09:08: daily. [address] cholecalcif 2020-0 Yes Take by Uni vers judi, 07-17 mouth ity of vitamin D3, 09:08: daily. [place] (VITAMIN 04 Medical D3) 4,000 Branch unit Cap docosahexan 2020-0 Yes Take by Uni vers oic 07-17 mouth. ity of acid/epa 09:08: [place] (FISH OIL Medical ORAL) [facility] metoprolol 2020-0 Yes 50mg Take 50 mg U nivers succinate - by mouth ity of XL 50 mg 24 09:08: daily. [place] hr tablet [address] [place] [address] rosuvastati 2020-0 Yes 5mg Take 5 mg U nivers n 5 mg - by mouth ity of tablet 09:08: daily. [address] OMEPRAZOLE 2020-0 Yes 40mg Take 40 mg U nivers ORAL 07-17 by mouth. ity of 09:08: [address] aspirin 81 2020-0 Yes 81mg Take 81 mg U nivers mg chewable 07-17 by mouth ity of tablet 09:08: daily. [address] cholecalcif 2020-0 Yes Take by Uni vers judi, 07-17 mouth ity of vitamin D3, 09:08: daily. [place] (VITAMIN 04 Medical D3) 4,000 Branch unit Cap docosahexan 2020-0 Yes Take by Uni vers oic - mouth. ity of acid/epa 09:08: [place] (FISH OIL Medical ORAL) [facility] metoprolol 2020-0 Yes 50mg Take 50 mg U nivers succinate 9-01 by mouth ity of XL 50 mg 24 09:08: daily. [place] hr tablet 04 [facility] rosuvastati 2020-0 Yes 5mg Take 5 mg U nivers n 5 mg - by mouth ity of tablet 09:08: daily. [address] OMEPRAZOLE 2020-0 Yes 40mg Take 40 mg U nivers ORAL 07-17 by mouth. ity of 09:08: [address] aspirin 81 2020-0 Yes 81mg Take 81 mg U nivers mg chewable 07-17 by mouth ity of tablet 09:08: daily. [address] cholecalcif 2020-0 Yes Take by Uni vers judi, 07-17 mouth ity of vitamin D3, 09:08: daily. [place] (VITAMIN 04 Medical D3) 4,000 Branch unit Cap docosahexan 2020-0 Yes Take by Uni vers oic 07-17 mouth. ity of acid/epa 09:08: [place] (FISH OIL Medical ORAL) [facility] metoprolol 2020-0 Yes 50mg Take 50 mg U nivers succinate - by mouth ity of XL 50 mg 24 09:08: daily. [place] hr tablet [address] [place] [address] rosuvastati 2020-0 Yes 5mg Take 5 mg U nivers n 5 mg 07-17 by mouth ity of tablet 09:08: daily. [address] OMEPRAZOLE 2020-0 Yes 40mg Take 40 mg U nivers ORAL 07-17 by mouth. ity of 09:08: [address] aspirin 81 2020-0 Yes 81mg Take 81 mg U nivers mg chewable 07-17 by mouth ity of tablet 09:08: daily. [address] cholecalcif 2020-0 Yes Take by Uni vers judi, 07-17 mouth ity of vitamin D3, 09:08: daily. [place] (VITAMIN 04 Medical D3) 4,000 Branch unit Cap docosahexan 2020-0 Yes Take by Uni vers oic 07-17 mouth. ity of acid/epa 09:08: [place] (FISH OIL 04 Medical ORAL) [facility] metoprolol 2020-0 Yes 50mg Take 50 mg U nivers succinate 9-01 by mouth ity of XL 50 mg 24 09:08: daily. [place] hr tablet [address] [place] [address] rosuvastati 2020-0 Yes 5mg Take 5 mg U nivers n 5 mg 9-01 by mouth ity of tablet 09:08: daily. [address] OMEPRAZOLE 2020-0 Yes 40mg Take 40 mg U nivers ORAL - by mouth. ity of 09:08: [address] aspirin 81 2020-0 Yes 81mg Take 81 mg U nivers mg chewable 07-17 by mouth ity of tablet 09:08: daily. [address] cholecalcif 2020-0 Yes Take by Uni vers judi, 07-17 mouth ity of vitamin D3, 09:08: daily. [place] (VITAMIN 04 Medical D3) 4,000 Branch unit Cap docosahexan 2020-0 Yes Take by Uni vers oic 07-17 mouth. ity of acid/epa 09:08: [place] (FISH OIL Medical ORAL) [facility] metoprolol 2020-0 Yes 50mg Take 50 mg U nivers succinate - by mouth ity of XL 50 mg 24 09:08: daily. [place] hr tablet [address] [place] [address] rosuvastati 2020-0 Yes 5mg Take 5 mg U nivers n 5 mg - by mouth ity of tablet 09:08: daily. [address] OMEPRAZOLE 2020-0 Yes 40mg Take 40 mg U nivers ORAL 07-17 by mouth. ity of 09:08: [address] aspirin 81 2020-0 Yes 81mg Take 81 mg U nivers mg chewable 07-17 by mouth ity of tablet 09:08: daily. [address] cholecalcif 2020-0 Yes Take by Uni vers judi, 07-17 mouth ity of vitamin D3, 09:08: daily. [place] (VITAMIN 04 Medical D3) 4,000 Branch unit Cap docosahexan 2020-0 Yes Take by Uni vers oic 07-17 mouth. ity of acid/epa 09:08: [place] (FISH OIL 04 Medical ORAL) Branch metoprolol 2020-0 Yes 50mg Take 50 mg U nivers succinate 9-01 by mouth ity of XL 50 mg 24 09:08: daily. [place] hr tablet [address] [place] [address] rosuvastati 2020-0 Yes 5mg Take 5 mg U nivers n 5 mg 9-01 by mouth ity of tablet 09:08: daily. [address] OMEPRAZOLE 2020-0 Yes 40mg Take 40 mg U nivers ORAL - by mouth. ity of 09:08: [address] aspirin 81 2020-0 Yes 81mg Take 81 mg U nivers mg chewable 07-17 by mouth ity of tablet 09:08: daily. [address] cholecalcif 2020-0 Yes Take by Uni vers judi, 07-17 mouth ity of vitamin D3, 09:08: daily. [place] (VITAMIN 04 Medical D3) 4,000 Branch unit Cap docosahexan 2020-0 Yes Take by Uni vers oic 07-17 mouth. ity of acid/epa 09:08: [place] (FISH OIL 04 Medical ORAL) Branch metoprolol 2020-0 Yes 50mg Take 50 mg U nivers succinate - by mouth ity of XL 50 mg 24 09:08: daily. [place] hr tablet [address] [place] [address] rosuvastati 2020-0 Yes 5mg Take 5 mg U nivers n 5 mg - by mouth ity of tablet 09:08: daily. [address] OMEPRAZOLE 2020-0 Yes 40mg Take 40 mg U nivers ORAL - by mouth. ity of 09:08: [address] aspirin 81 2020-0 Yes 81mg Take 81 mg U nivers mg chewable 07-17 by mouth ity of tablet 09:08: daily. [address] cholecalcif 2020-0 Yes Take by Uni vers judi, 07-17 mouth ity of vitamin D3, 09:08: daily. [place] (VITAMIN 04 Medical D3) 4,000 Branch unit Cap docosahexan 2020-0 Yes Take by Uni vers oic 07-17 mouth. ity of acid/epa 09:08: [place] (FISH OIL 04 Medical ORAL) Branch metoprolol 2020-0 Yes 50mg Take 50 mg U nivers succinate - by mouth ity of XL 50 mg 24 09:08: daily. [place] hr tablet [address] [place] [address] rosuvastati 2020-0 Yes 5mg Take 5 mg U nivers n 5 mg -01 by mouth ity of tablet 09:08: daily. [address] OMEPRAZOLE 2020-0 Yes 40mg Take 40 mg U nivers ORAL by mouth. ity of 09:08: [address] aspirin 81 Yes 81mg Take 81 mg U nivers mg chewable 07-17 by mouth ity of tablet 09:08: daily. [address] cholecalcif Yes Take by Uni vers judi, 07-17 mouth ity of vitamin D3, 09:08: daily. [place] (VITAMIN 04 Medical D3) 4,000 Branch unit Cap docosahexan Yes Take by Uni vers oic 07-17 mouth. ity of acid/epa 09:08: [place] (FISH OIL Medical ORAL) [facility] Losartan Yes [id number] 100mg Take 1 Ke lsey Potassium 6-18 tablet Seybold 100 MG oral 00:00: (100 mg Tablet 00 total) by mouth daily Metoprolol Yes [id number] 50mg Take 1 K elsey Succinate 6-18 tablet (50 Seyb old 50 MG oral 00:00: mg total) TABLET SR 00 by mouth 24 HR daily Omeprazole Yes [id number] 40mg Take 1 [place] 40 MG oral 6-18 capsule Seybol d Delayed 00:00: (40 mg Release 00 total) by Capsule mouth daily Rosuvastati Yes [id number] 5mg Take 1 [place] n Calcium 5 6-18 tablet (5 Sey bold MG oral 00:00: mg total) Tablet 00 by mouth daily Losartan 2021- No [id number] 100mg Take 1 K elsey Potassium 6-18 04-15 tablet Seybold 100 MG oral 00:00: 00:00 (100 mg Tablet 00 :00 total) by mouth daily Metoprolol 2021- No [id number] 50mg Take 1 [place] Succinate 6-18 04-15 tablet (50 Sey bold 50 MG oral 00:00: 00:00 mg total) TABLET SR 00 :00 by mouth 24 HR daily Omeprazole 2021- No [id number] 40mg Take 1 [place]abel 40 MG oral 6-18 04-15 capsule Seybo ld Delayed 00:00: 00:00 (40 mg Release 00 :00 total) by Capsule mouth daily Rosuvastati 2021- No [id number] 5mg Take 1 [place] n Calcium 5 6-18 04-15 tablet (5 Se ybold MG oral 00:00: 00:00 mg total) Tablet 00 :00 by mouth daily losartan 2020-0 Yes 100mg Take 1 Univer [...] of tablet 00:00: mouth [place] 00 daily. [facility] Branch losartan 2020-0 Yes 100mg Take 1 Univer s 100 mg 3-30 tablet by ity of tablet 00:00: mouth [place] 00 daily. [facility] losartan 2020-0 Yes 100mg Take 1 Univer s 100 mg 3-30 tablet by ity of tablet 00:00: mouth [place] 00 daily. [facility] losartan 2020-0 Yes 100mg Take 1 Univer [...] of tablet 00:00: mouth [place] 00 daily. [facility] Branch losartan 2020-0 Yes 100mg Take 1 Univer s 100 mg 3-30 tablet by ity of tablet 00:00: mouth [place] 00 daily. Medical Branch losartan 2020-0 Yes 100mg Take 1 Univer s 100 mg 3-30 tablet by ity of tablet 00:00: mouth [place] 00 daily. [facility] Branch losartan 2020-0 Yes 100mg Take 1 Univer s 100 mg 3-30 tablet by ity of tablet 00:00: mouth [place] 00 daily. [facility] Branch losartan 2020-0 Yes 100mg Take 1 Univer s 100 mg 3-30 tablet by ity of tablet 00:00: mouth [place] 00 daily. [facility] Branch GABAPENTIN 2019-0 Yes [id number] TAKE ONE Univers 100 mg 9-27 (1) ity of capsule 00:00: CAPSULE(S) [place] 00 BY MOUTH Medical AT Branch BEDTIME. GABAPENTIN 2019-0 Yes [id number] TAKE ONE Univers 100 mg 9-27 (1) ity of capsule 00:00: [place]SULE(S) [place] 00 BY MOUTH Medical AT [facility]. GABAPENTIN 2019-0 Yes [id number] TAKE ONE Univers 100 mg 9-27 (1) ity of capsule 00:00: [place]SULE(S) [place] 00 BY MOUTH Medical AT [facility]. GABAPENTIN 2019-0 Yes [id number] TAKE ONE Univers 100 mg 9-27 (1) ity of capsule 00:00: CAPSULE(S) [place] 00 BY MOUTH Medical AT [facility]. GABAPENTIN 2019-0 Yes [id number] TAKE ONE Univers 100 mg 9-27 (1) ity of capsule 00:00: CAPSULE(S) [place] 00 BY MOUTH Medical AT [facility]. GABAPENTIN 2019-0 Yes [id number] TAKE ONE Univers 100 mg 9-27 (1) ity of capsule 00:00: CAPSULE(S) [place] 00 BY MOUTH Medical AT [facility]. GABAPENTIN 2019-0 Yes [id number] TAKE ONE Univers 100 mg 9-27 (1) ity of capsule 00:00: CAPSULE(S) [place] 00 BY MOUTH Medical AT [facility]. GABAPENTIN 2019-0 Yes [id number] TAKE ONE Univers 100 mg 9-27 (1) ity of capsule 00:00: CAPSULE(S) [place] 00 BY MOUTH Medical AT [facility]. GABAPENTIN 2019-0 Yes [id number] TAKE ONE Univers 100 mg 9-27 (1) ity of capsule 00:00: CAPSULE(S) [place] 00 BY [facility] Medical AT [facility]. GABAPENTIN 2019-0 Yes [id number] TAKE ONE Univers 100 mg 9-27 (1) ity of capsule 00:00: CAPSULE(S) [place] 00 BY MOUTH Medical AT [facility]. GABAPENTIN 2019-0 Yes [id number] TAKE ONE Univers 100 mg 9-27 (1) ity of capsule 00:00: CAPSULE(S) [place] 00 BY MOUTH Medical AT [facility]. GABAPENTIN 2019-0 Yes [id number] TAKE ONE Univers 100 mg 9-27 (1) ity of capsule 00:00: CAPSULE(S) [place] 00 BY MOUTH Medical AT [facility]. Vital Signs Vital Name Observation Time Observation Value Comments Source Systolic blood 2022-09-02 13:09:00 135 mm[Hg] [facility]iver [facility] Diastolic blood 2022-09-02 13:09:00 67 mm[Hg] Unive rsity of pressure [place] [facility] Heart rate 2022-09-02 13:09:00 59 /min [facility] Oxygen saturation in 2022-09-02 13:09:00 96 /min [facility] of Arterial blood by [facility] Pulse oximetry Branch Systolic blood 2022-08-27 12:50:00 142 mm[Hg] Ysabel Seybold - pressure External Diastolic blood 2022-08-27 12:50:00 90 mm[Hg] Sylvester y Seybold - pressure External Heart rate 2022-08-27 12:50:00 63 /min Ysabel S eybold - External Body temperature 2022-08-27 12:50:00 36.67 Tiffany Vicki ey Seybold - External Respiratory rate 2022-08-27 12:50:00 14 /min Vicki bradford Seybold - External Body height 2022-08-27 12:50:00 157.5 cm Ysabel S eybold - External Body weight 2022-08-27 12:50:00 105.235 kg Ysabel Diggs eybold - External BMI 2022-08-27 12:50:00 42.43 kg/m2 Ysabel Diggs eybold - External Systolic blood 2022-06-24 13:46:00 118 mm[Hg] Univer [facility]ity of pressure [facility] Diastolic blood 2022-06-24 13:46:00 67 mm[Hg] [facility]ive [facility] Heart rate 2022-06-24 13:46:00 56 /min [facility] Body height 2022-06-24 13:46:00 157.5 cm [facility] Body weight 2022-06-24 13:46:00 106.232 kg [facility] BMI 2022-06-24 13:46:00 42.84 kg/m2 [facility] Oxygen saturation in 2022-06-24 13:46:00 98 /min [facility] Arterial blood by [facility] Pulse oximetry Branch BMI 2022-03-28 13:03:00 44.99 kg/m2 Ysabel S eybold Systolic blood 2022-03-28 13:03:00 108 mm[Hg] Ysabel Seybold pressure Diastolic blood 2022-03-28 13:03:00 62 mm[Hg] Kelse y Seybold pressure Heart rate 2022-03-28 13:03:00 122 /min Ysabel S eybold Body temperature 2022-03-28 13:03:00 35.83 Tiffany Vicki ey Seybold Respiratory rate 2022-03-28 13:03:00 16 /min Vicki ey Seybold Body height 2022-03-28 13:03:00 157.5 cm Ysabel S eybold Body weight 2022-03-28 13:03:00 111.585 kg Ysabel S eybold Systolic blood 2022-02-28 13:10:00 128 mm[Hg] Ysabel Seybold pressure Diastolic blood 2022-02-28 13:10:00 82 mm[Hg] Kelse y Seybold pressure Heart rate 2022-02-28 13:10:00 89 /min Ysabel S eybold Body temperature 2022-02-28 13:10:00 36 Tiffany Vicki ey Seybold Respiratory rate 2022-02-28 13:10:00 14 /min Vicki ey Seybold Body height 2022-02-28 13:10:00 157.5 cm Ysabel S eybold Body weight 2022-02-28 13:10:00 111.131 kg Ysabel S eybold BMI 2022-02-28 13:10:00 44.81 kg/m2 Ysabel S eybold Systolic blood 2022-02-21 13:12:00 142 mm[Hg] Ysabel Seybold pressure Diastolic blood 2022-02-21 13:12:00 72 mm[Hg] Kelse y Seybold pressure Heart rate 2022-02-21 13:12:00 66 /min Ysabel S eybold Body temperature 2022-02-21 13:12:00 36.67 Tiffany Vicki ey Seybold Respiratory rate 2022-02-21 13:12:00 14 /min Vicki ey Seybold Body height 2022-02-21 13:12:00 157.5 cm Ysabel S eybold Body weight 2022-02-21 13:12:00 109.77 kg Ysabel S eybold BMI 2022-02-21 13:12:00 44.26 kg/m2 Ysabel galdamez Procedures Procedure Date / Time Performed Performing Clinician [facility] ASSIGNMENT OF BENEFITS 2022-09-02 13:00:31 Doctor Unassigned, No [facility] Name [facility] 2022-08-18 05:01:00 Doctor Unassigned, No [facility] RELEASE/CLEARANCE Name Medical Branch FORMS MEDICAL 2022-08-12 05:01:00 Doctor Unassigned, No [facility] RELEASE/CLEARANCE Name [facility] FORMS Encounters Start End Encounter Admission Attending Care Care Encounter Source Date/Time Date/Time Type Type Clinicians Facility Department ID 2022-11-27 2022-11-27 Outpatient YSABEL ALVAREZ [id number] Ysabel 08:00:00 08:00:00 CHANDLER serrano 2022-09-03 2022-09-03 [facility] [id number] Univers 00:00:00 00:00:00 Celia HERNANDEZ 350.1.13.10 ity [facility] [place] [phone] [place]ical NAL 059 [facility] 2022-09-02 2022-09-02 Outpatient R ROXY [facility] [id number] Univers 08:00:00 08:49:01 JACQUIE lynch [facility] 2022-09-02 2022-09-02 [facility] 1.2.840.114 [id number] Univers 08:00:00 08:49:01 Visit Jacquie HERNANDEZ 350.1.13.10 i ty [facility] [place] [id number] [place] dical NAL 059 [facility] 2022-09-02 2022-09-02 Orders Doctor HUYNH 1.2.840.114 [id number] Univers 00:00:00 00:00:00 Only Unassigned, PIERRE 350.1.13.[address] [facility] 4.2.7.2.686 [place] [id number] [address] 2022-08-27 2022-08-27 Outpatient LAB90 YSABEL CABRALES [id number] Ysabel 08:45:00 08:45:00 Seybol d 2022-08-27 2022-08-27 Outpatient MILO ALVAREZBARBARA ACBRALES [id number] Ysabel 08:00:00 08:00:00 CHANDLER Seybol d 2022-08-27 2022-08-27 Outpatient MILO ALVAREZBARBARA CABRALES [id number] Ysabel 00:00:00 00:00:00 CHANDLER Seybol d 2022-08-19 2022-08-19 Telephone [facility] 1.2.840.114 [id number] Univers 00:00:00 00:00:00 Laure HERNANDEZ 350.1.13.10 ity of [place] [id number] [address] 2022-08-18 2022-08-18 Outpatient LAURITA, YSABEL CABRALES [id number] Ysabel 00:00:00 00:00:00 JUDY De Santiagool zach 2022-08-18 2022-08-18 Orders Doctor LINO 1.2.840.114 [id number] Univers 00:00:00 00:00:00 Only Unassigned, PIERRE 350.1.13.10 ity of [place] [facility] 4.2.7.2.686 [place] [id number] [address] 2022-08-12 2022-08-12 Orders Doctor LINO 1.2.840.114 [id number] Univers 00:00:00 00:00:00 Only Unassigned, PIERRE 350.1.13.10 ity of [place] [facility] 4.2.7.2.686 [place] [id number] [address] 2022-07-29 2022-07-29 Telemedici [facility] 1.2.840.114 [id number] Univers 11:15:00 11:30:00 ne Visit Laure DAVID 350.1.13.10 ity [place] [id number] [address] 2022-07-29 2022-07-29 Outpatient R [facility] [id number] Univers 11:15:00 11:15:00 [facility] 2022-07-09 2022-07-09 [facility] [id number] Univers 15:00:00 15:00:00 [facility] 2022-07-09 2022-07-09 Outpatient [facility] [id number] Univers 13:35:46 13:36:00 LAURE morrissey [facility] 2022-07-04 2022-07-04 Outpatient YSABEL SHAY [id number] Ysabel 08:15:00 08:15:00 JUDY serrano 2022-06-24 2022-06-24 Outpatient R [facility] [id number] Univers 09:00:00 09:22:50 LAURE morrissey [facility] 2022-06-24 2022-06-24 Office [facility] 1.2.840.114 [id number] [facility] 09:00:00 09:22:50 Visit Laure HERNANDEZ 350.1.13.10 [facility] 4.2.7.2.686 Ashleigh HOOPER [phone] [address] 2022-06-24 2022-06-24 Outpatient R [facility] [id number] Univers 09:00:00 09:22:50 LAURE morrissey [facility] 2022-06-24 2022-06-24 Outpatient [facility] [id number] Univers 09:00:00 09:00:00 LAURE morrissey [facility] 2022-06-24 2022-06-24 Outpatient R [facility] [id number] Univers 09:00:00 09:00:00 LAURE morrissey [facility] 2022-06-19 2022-06-19 Outpatient R [facility] [id number] Univers 07:34:48 23:59:00 LAURE morrissey [facility] 2022-06-19 2022-06-19 [facility] .[id number] Univers 07:34:48 23:59:00 Encounter Laure HERNANDEZ 350.1.13.10 ity [place] [id number] [facility] [address] 2022-05-30 2022-05-30 Outpatient YSABEL SHAY [id number] Ysabel 08:00:00 08:00:00 JUDY serrano 2022-05-26 2022-05-26 Office Jerad [facility] 1.2.840.114 [id number] Univers 10:15:00 11:19:33 Visit Laure [place] 350.1.13.10 ity of [facility] [place]2.[place] [id number] [facility] [address] 2022-05-26 2022-05-26 Outpatient R [facility] [id number] Univers 10:15:00 11:19:33 [facility] 2022-05-26 2022-05-26 Outpatient R [facility] [id number] Univers 10:15:00 10:15:00 [facility] 2022-05-16 2022-05-16 Outpatient YSABEL SHAY [id number] Ysabel 00:00:00 00:00:00 JUDY serrano 2022-05-13 2022-05-13 [facility] [id number] Univers 00:00:00 00:00:00 Sendil Tonia HERNANDEZ 350.1.13.10 ity of [place] [facility] [id number] [facility]59 [facility] 2022-05-09 2022-05-09 Outpatient R [facility] [id number] Univers 09:27:15 23:59:00 SENDIL [facility] 2022-05-08 2022-05-08 Laboratory Only, Adc Test [facility] 1.2.840. 114 [id number] Univers 08:30:00 08:45:00 Only Rosas Solares 350.1.13.10 ity of [facility] 4.2.7.2.686 [facility] [id number] [address] 2022-05-08 2022-05-08 Outpatient R SUJATHA [facility] [id number] Univers 08:30:00 08:30:00 ROSAS lynch [facility] 2022-05-08 2022-05-08 Outpatient YSABEL SHAY [id number] Ysabel 00:00:00 00:00:00 JUDY Seybol zach 2022-05-08 2022-05-08 Outpatient YSABEL SHAY [id number] Ysabel 00:00:00 00:00:00 JUDY De Santiagool zach 2022-05-02 2022-05-02 Outpatient LAB90 YSABEL CABRALES [id number] Ysabel 09:30:00 09:30:00 Seybol zach 2022-05-02 2022-05-02 Office Abhi Shay 1.2.840.114 [id number] Ysabel 09:00:00 09:15:00 Visit Judy Tripp 350.1.13.13 Se matilda Vaughan 1.2.7.2.686 [id number] 2022-05-01 2022-05-01 Orders Doctor HUYNH 1.2.840.114 [id number] Univers 00:00:00 00:00:00 Only Unassigned, PIERRE 350.1.13.10 ity of [place] [facility] 4.2.7.2.686 [place] [id number] [place] [address] Branch 2022-04-30 2022-04-30 Outpatient R KATHY [facility] [id number] Univers 10:00:00 10:00:00 CELIA [facility] 2022-04-29 2022-04-29 Laboratory Only, Adc Test [facility] 1.2.840. 114 [id number] Univers 09:00:00 09:15:00 Only Celia Chavez 350.1.13. 10 ity of [place] 4.2.7.2.686 [facility] [id number] [address] 2022-04-29 2022-04-29 Outpatient R KATHY [facility] [id number] Univers 09:00:00 09:00:00 SENDIL ity [facility] 2022-04-29 2022-04-29 Telephone [facility] [id number] Univers 00:00:00 00:00:00 Sendmilvia HERNANDEZ 350.1.13.10 ity [facility] [place] [phone] [place] dicmt NAL [address] [place] [address] 2022-04-25 2022-04-25 Outpatient YSABEL SHAY [id number] Ysabel 08:30:00 08:30:00 JUDY serrano 2022-04-08 2022-04-08 [facility]phone [facility] [id number] Univers 00:00:00 00:00:00 Sendmilvia HERNANDEZ 350.1.13.10 ity [facility] [place] [id number] [place] dical NAL [address] [place] [address] 2022-03-28 2022-03-28 Office Abhi Shay 1.2.840.114 [id number] Ysabel 08:15:00 08:30:00 Visit Judy Tripp 350.1.13.13 Se ybold Somogyi 1.2.7.2.686 [id number] 2022-02-28 2022-02-28 Outpatient LAB90 YSABEL CABRALES [id number] Ysabel 09:20:00 09:20:00 Seybol d 2022-02-28 2022-02-28 Office Abhi Shay 1.2.840.114 [id number] Ysabel 08:45:00 09:00:00 Visit Judy Qasim 350.1.13.13 Se ybold Somogyi 1.2.7.2.686 [id number] 2022-02-24 2022-02-24 Outpatient YSABEL SHAY [id number] Ysabel 00:00:00 00:00:00 JUDY Seybol d 2022-02-24 2022-02-24 Orders Doctor HUYNH 1.2.840.114 [id number] Univers 00:00:00 00:00:00 Only Unassigned, PIERRE 350.1.13.[address] [facility] 4.2.7.2.686 [place] [id number] [address] 2022-02-21 2022-02-21 Outpatient LAB90 YSABEL CABRALES [id number] Ysabel 09:05:00 09:05:00 Seybol d 2022-02-21 2022-02-21 Office LauritaAbhi 1.2.840.114 [id number] Ysabel 08:00:00 08:15:00 Visit Judy Tripp 350.1.13.13 Se matilda Vaughan 1.2.7.2.686 [id number] 2021-11-13 2021-11-13 Outpatient ILH37-EUO YSABEL CABRALES [id number] Ysabel 15:40:00 15:40:00 Seybol d 2021-11-13 2021-11-13 Outpatient TESTING, PL YSABEL CABRALES [id number] Ysabel 15:20:00 15:20:00 Seybol zach 2021-09-17 2021-09-17 Outpatient R KTAHY [facility] [id number] Univers 09:00:00 09:00:00 SENDIL ity [facility] 2021-07-17 2021-07-17 Office Kathy [facility] 1.2.840.114 [id number] Univers 08:42:59 09:48:47 Visit Celia Hernandez 350.1.13.10 ity [facility] [place] [phone] [place] [address] [facility] 2021-07-17 2021-07-17 Outpatient R KATHY [facility] [id number] Univers 09:00:00 09:00:00 SENDIL ity [facility] 2021-07-17 2021-07-17 Orders Doctor HUYNH 1.2.840.114 [id number] Univers 00:00:00 00:00:00 Only Unassigned, PIERRE 350.1.13.10 ity of [place] [facility] 4.2.7.2.686 [place] [id number] [address] 2021-07-17 2021-07-17 Orders Doctor LINO 1.2.840.114 [id number] Univers 00:00:00 00:00:00 Only Unassigned, PIERRE 350.1.13.10 ity of [place] [facility] 4.2.7.2.686 [place] [id number] [address] 2021-06-17 2021-06-17 Outpatient R KATHY [facility] [id number] Univers 09:00:00 09:00:00 SENDIL [facility] 2021-01-29 2021-01-29 Patient Herb [facility] 1.2.840.114 [id number] Univers 00:00:00 00:00:00 Outreach Phill PRIMARY 350.1.13.[address] [facility] [place]2.7.2.[place] [id number] [address] 2020-02-13 2020-02-13 Refill [facility] 1.2.840.114 [id number] Univers 00:00:00 00:00:00 Sendmilvia Hernandez 350.1.13.10 ity of [place] [id number] Va dicmt nal 9 [facility] 2019-06-09 2019-06-09 Orders Doctor LINO 1.2.840.114 [id number] Univers 00:00:00 00:00:00 Only Unassigned, PIERRE 350.1.13.10 ity of [place] [facility] 4.2.7.2.686 [place] [id number] [address] 2019-06-03 2019-06-03 Telephone [facility] [id number] [id number] Univers 00:00:00 00:00:00 Sendil Tonia Hernandez 350.1.13.10 ity of [place] [phone] [place] 263099 [facility] Results This patient has no known results.
--- NOTE | 2022-09-30 14:13 | P.CNS ---
Date of Consult: 09/30/22 Reason for Consult: Medical management Requesting Physician: Stephen Perry Chief Complaint: Right knee pain History of Present Illness: Patient is a 52-year-old female with a past medical history significant for hypertension, GERD, sleep apnea, Marie's disease, hyperlipidemia, osteoarthritis who presents with complaint of right knee pain that has been ongoing for a while. Patient has attempted conservative management but has not seen any improvement in symptoms. Patient followed up with her orthopedic surgeon and patient agreed with the surgeon to perform a right total knee arthroplasty. Patient successfully had a right total knee arthroplasty. Patient rated pain before the procedure as 8/10 in severity and described pain as aching in quality. Patient denies any other signs and symptoms. Symptoms a re aggravated or relieved by nothing. Patient currently resting in bed. Allergies No Known Allergies Allergy (Verified 09/25/22 09:08) Home Medications: Aspirin [Adult Low Dose Aspirin EC] 81 mg PO DAILY 10/19/15 Docosahexanoic AC/Epa [Fish Oil 1,000 MG*] 1,000 mg PO DAILY 10/19/15 Metoprolol Succinate 50 mg PO DAILY 10/19/15 Cholecalciferol (Vitamin D3) [Vitamin D3] 6,000 unit PO DAILY 09/25/22 Ibuprofen 800 mg PO DAILY 09/25/22 Losartan Potassium 100 mg PO DAILY 09/25/22 Omeprazole [Prilosec] 40 mg PO DAILY 09/25/22 Potassium Gluconate [Potassium] 99 mg PO DAILY 09/25/22 Sertraline [Zoloft] 50 mg PO DAILY 09/25/22 Zinc Gluconate [Zinc] 50 mg PO DAILY 09/25/22 - Past Medical/Surgical History Diabetic: No -: hypertension -: hypercholesterolemia -: sleep apnea -: Hashimotos -: meniscus repair bilateral knees -: D&C after miscarriage x 2 -: tubal ligation - Family History Mother Medical History: Heart disease, Hypertension, Diabetes Notes: thyroid Father Medical History: Cancer - Social History Smoking Status: Never smoker Alcohol use: No CD- Drugs: No Caffeine use: Yes Place of Residence: Home Review of Systems General: Unremarkable Eyes: Unremarkable ENT: Unremarkable Respiratory: Unremarkable Cardiovascular: Unremarkable Gastrointestinal: Unremarkable Genitourinary: Unremarkable Musculoskeletal: Other (Right knee pain ) Integumentary: Unremarkable Neurological: Unremarkable Lymphatics: Unremarkable Physical Examination Temp Pulse Resp BP Pulse Ox 98 F 64 16 132/54 L 09/30/22 14:02 09/30/22 14:02 09/30/22 14:02 09/30/22 14:02 General: Alert, Oriented x3, Cooperative HEENT: Atraumatic, Normocephalic, PERRLA Neck: Supple, 2+ carotid pulse no bruit, JVD not distended Respiratory: Clear to auscultation bilaterally, Normal air movement Cardiovascular: Normal pulses, Normal S1 S2 Capillary refill: <2 Seconds Gastrointestinal: Normal bowel sounds, Soft and benign Musculoskeletal: No clubbing, Swelling Integumentary: No rashes, No warmth, No cyanosis Neurological: Normal speech, Normal tone, Normal affect Lymphatics: No axilla or inguinal lymphadenopathy Conclusions/Impression: --Right knee osteoarthritis. Status post right knee arthroplasty. Orthopedic surgeon on board. PT eval and treat. Patient is on a CPM machine to right knee. Continue supportive care. Will await further recommendation from orthoepic MD --Acute pain. We will manage pain with current pain medication regimen. --Hypertension. Stable. Continue home medications --GERD. Continue Protonix. --Hyperlipidemia. Patient placed on statin. --Sleep apnea. Continue supportive care. --History of Marie's disease. Continue supportive care. --Obesity. Likely secondary to excess calories intake. Patient counselled on weight reduction, diet and exercise therapy --DVT prophylaxis with SCDs Physician Review: Patient Assessed, Agree with Above Assessment and Plan Critical Care: No
[2022-09-30 15:19] VITALS: BMI 42.2
[2022-09-30] MEDS ORDERED: CEFAZOLIN SODIUM 1 GM/VIAL ONE (17:01)
[2022-09-30] MEDS ORDERED: NA CHLORIDE 0.9% 50 ML ONE (17:03)
[2022-09-30] MEDS: CEFAZOLIN 1 GM in NA CHLORIDE 0.9% 50 ML IVPB SCH (18:13)
--- NOTE | 2022-09-30 18:48 | OP ---
Date of Procedure: 09/30/2022 Surgeon: Stephen Perry MD Preoperative Diagnosis: Severe right knee arthritis. Postoperative Diagnosis: Severe right knee arthritis. Procedure: Right total knee arthroplasty using the Biomet Vanguard system. Estimated Blood Loss: 100 cc. Complications: There were no complications. Indication For Operation: Ms. Mandujano is a 52-year-old female, who unfortunately has exhausted cons ervative measures regarding her right knee. She has debilitating right knee pain. X-rays demonstrat e significant degenerative knee changes and risks, benefits, and alternatives to total knee arthropla sty have been discussed with her. She states she understands things as presented and wishes to proce ed. Description Of Procedure: The patient was taken to the operating room, placed in supine position, an d general anesthesia obtained by the staff. Following this, a well-padded tourniquet was placed on s uperior right thigh. Right lower extremity was then prepped and draped in the usual fashion procedur e. After this, the leg was then elevated, exsanguinated, and the knee was bent. A standard anterior incision was taken down carefully through the skin and soft tissues. Meticulous hemostasis being ma intained using Bovie electrocautery. This leads to the extensor mechanism. The appropriate level wa s developed as a medial parapatellar arthrotomy was then performed. There was liberation of approxim ately 20 cc of rather normal-appearing synovial fluid. This was followed by excision of some of the fat pad. The patella was then everted and the medial and lateral menisci were removed. It should be noted there was quite a bit of adipose tissue making some visualization difficult. Anterior cruciat e ligament was removed and intramedullary alignment guide was then placed. This was followed by karen chment of the distal cut. The distal cut was performed and measured. It could have been possible to 1 size smaller, but we felt that we were getting very close and notching at least the lateral cortex . Therefore, decision was made to proceed with the 67.5. The remainder of the cuts were then made. The tibial cut was then with care being taken to protect the structures. After this, it was then tr ialed and appears to be somewhat tighter in flexion and would be desired. There was a question wheth er we should downsize the femoral component or perhaps cut a little more slope. Decision was made to make a little more slope for the tibia. This was done without difficulty. It now appears to have l ess problem with flexion. The attention was then turned to patella. It was then calipered and cut a nd trial button was placed. It appears to glide well. After this, the trial components were removed and the box is placed and the tibia was punched. All bony surfaces were then cleaned and prepped fo r cementation. The final components with the exception of the final polyethylene were then placed. Trial polyethylene was placed to allow the cement to harden. It was brought through full range of mo tion and appears to be symmetric in both flexion and extension, and the patella glides well. The tri al polyethylene was removed. The final polyethylene was placed with the use of a locking bar. It wa s again irrigated and brought through range of motion and the patella appears to glide well, and the extensor mechanism was then repaired back using heavy Ethibond sutures. The skin irrigated and skin was closed using Vicryl sutures. The skin was then closed using dinesh. The patient was placed in a well-padded sterile dressing, awakened, and taken to the recovery room in good condition. There we re no complications. SE/MODL Voice ID: [id number] Report ID: [id number]
[2022-09-30] MEDS: HYDROCODONE/APAP 7.5/325 MG TAB PO PRN (20:36)
[2022-09-30] MEDS ORDERED: ATORVASTATIN 40 MG TAB PO SCH (21:00)
[2022-10-01] MEDS ORDERED: NA CHLORIDE 0.9% 50 ML ONE ×2 (00:40→08:00)
[2022-10-01] MEDS ORDERED: CEFAZOLIN SODIUM 1 GM/VIAL ONE ×2 (00:43→07:38)
[2022-10-01] MEDS: HYDROCODONE/APAP 7.5/325 MG TAB PO PRN ×3 (00:49→08:16)
[2022-10-01] MEDS: CEFAZOLIN 1 GM in NA CHLORIDE 0.9% 50 ML IVPB SCH ×2 (00:49→08:06)
[2022-10-01] MEDS ORDERED: ENOXAPARIN 30 MG/0.3 ML SQ SCH (06:00)
[2022-10-01 06:16] LABS: Absolute Lymphocytes (CBC) 0.7 K/uL (0.7-4.9); Hematocrit 36.4 % (36.0-45.0); Lymphocytes % 4.7 % (15.3-44.8); MCV 92.2 fL (80-100); MPV 8.5 fL (7.6-11.3); RBC Red Blood Cell Count 3.95 M/uL (3.86-4.86)
[2022-10-01 06:27] LABS: Potassium 3.8 mmol/L (3.5-5.1)
[2022-10-01] MEDS ORDERED: POTASSIUM CL SA 10 MEQ TAB PO ONE (06:50)
[2022-10-01 08:12] VITALS: BP 107/55
[2022-10-01 08:37] VITALS: TEMP 99
[2022-10-01] MEDS ORDERED: LOSARTAN POTASSIUM 50 MG TABLET PO SCH (09:00)
[2022-10-01] MEDS ORDERED: VITAMIN D 5,000 UNIT CAP PO SCH (09:00)
[2022-10-01] MEDS ORDERED: METOPROLOL XL 50 MG TAB PO SCH (09:00)
[2022-10-01] MEDS ORDERED: HOME MED 1 EA UNK (Omeprazole [Prilosec] 40 MG Capsule.Dr) PO SCH (09:00)
[2022-10-01] MEDS ORDERED: DOCOSAHEXANOIC AC/EPA 1000 MG PO SCH (09:00)
[2022-10-01] MEDS ORDERED: HOME MED 1 EA UNK (Potassium Gluconate [Potassium] 99 MG Tablet) PO SCH (09:00)
[2022-10-01] MEDS ORDERED: HOME MED 1 EA UNK (Cholecalciferol (Vitamin D3) [Vitamin D3] 2000 UNIT Capsule) PO SCH (09:00)
[2022-10-01] MEDS ORDERED: ZINC SULFATE 220 MG CAP PO SCH (09:00)
[2022-10-01] MEDS ORDERED: VITAMIN D 1000 UNIT TAB PO SCH (09:00)
[2022-10-01] MEDS ORDERED: PANTOPRAZOLE 40MG TABLET PO SCH (09:00)
[2022-10-01] MEDS ORDERED: SERTRALINE HCL 50 MG TAB PO SCH (09:00)
[2022-10-01 13:14] VITALS: O2SAT 97
== END 2022-10-01 11:43 | disposition home health service (06) ==
LOC: OR 07:25 → 2ND 14:06
PROVIDERS: ADMIT Orthopaedic Surgery; ATTEND Orthopaedic Surgery
PROC: 0SRC069 Replacement of Right Knee Joint with Oxidized Zirconium on Polyethylene Synthetic Substitute, Cemented, Open Approach (ICD-10-PCS; principal; 2022-09-30 10:00)
DX: M17.11 Unilateral primary osteoarthritis, right knee (principal); M25.561 Pain in right knee; Z20.822 Contact with and (suspected) exposure to COVID-19; I10 Essential (primary) hypertension; K21.9 Gastro-esophageal reflux disease without esophagitis; G47.30 Sleep apnea, unspecified; E06.3 Autoimmune thyroiditis; E78.5 Hyperlipidemia, unspecified
CPT/HCPCS: 85025 ×2; 81001; 80048; 36415 ×2; 86900; 86850; 81025; 85610; 86901; 88304; 88311; 85730; 80053; 71046; 97110 ×2; 97116; 97139; 97161; 97530 ×3; 94010; 87811; 27447; J2704 ×2; J0171; J2001 ×2; J1650; J2250; J3010 ×2; J1100 ×2; J2175; A4216 ×2; J1170 ×2; J7120 ×2; J2405; J0690 ×3; G0379; G0378 ×2; 88305